=== PATIENT | female | born 1945 | race Caucasian/White ===

== ENCOUNTER → 2020-01-30 | Outpatient (CLI) | payer OTHER ==
[~2020-01-30] VITALS: Ht 165.1 cm; Wt 90.7 kg
[~2020-01-30] MED LIST: ASA81BEC PO; CALCIUM + D3 E1 EACH PO; CENTRUM SILVER1 EAC6 PO; HYDROCHLOROTHIA25 M2 PO; KRILL OIL500 MG PO; PREDNISONE 10 M10 MG PO; ROSUVASTATIN CA20 MG PO; TOPROL XL25 MG PO; ZESTRIL5 MG PO
[2020-01-30 07:15] VITALS: BP 140/71
[2020-01-30 07:33] LABS: HEMATOCRIT 43.3 % (37.0-47.0); HEMOGLOBIN 14.5 gm/dL (12.0-15.0); MCH 31.2 pg (26.0-34.0); MCHC 33.5 g/dL (28.0-37.0); RBC 4.66 mil/uL (4.20-5.00); RDW 14.3 % (10.5-14.5); WBC 7.7 thou/uL (4.0-11.0)
[2020-01-30 07:51] LABS: CALCIUM 9.3 mg/dL (8.5-10.1); CREATININE 0.9 mg/dL (0.6-1.0); POTASSIUM 3.9 mmol/L (3.5-5.1)
--- NOTE | 2020-01-30 09:50 | TEE ---
[facility] [place] [address] TRANSESOPHAGEAL ECHOCARDIOGRAM Name: HOLLAND SANABRIA Room #: REG BRIDGET Lake#: [id number] Admission: 01/30/20 Attend Phys: Fernie Rolle MD, Discharge: Date of : 43 Report #: [id number] THIS REPORT FOR: cc: Abenr Song James L. DO Lundgren, Craig H. MD [facility] ~ APPROVED REPORT Study performed: 01/30/2020 07:59:41 EXAM: Comprehensive 2D, Doppler, and color-flow Echocardiogram Patient Location: Out-Patient Room #: 9 Status: routine BSA: 1.98 HR: 73 bpm BP: 120/64 mmHg Rhythm: NSR Other Information Study Quality: Good Indications Aortic Valve Disease Echo Enhancing Agent Indication: Rule out Shunt Agent(s) / Amount(s) Used: Agitated Saline 7 cc Procedure After obtaining informed consent, patient underwent transesophageal echo in the [employer]. Type of Sedation : Conscious Sedation Sedation was administered by Nurse. Sedation was achieved intravenously with: Versed (3 mg) Fentanyl (50 mcg) Transesophageal probe was inserted and advanced into esophagus without difficulty by Adama Warren MD. Echo enhancement indication: R/O Septal defect. Echo enhancement agent administered: Agitated Saline The CHRISTOPHER was performed without complications. Throughout the procedure, the blood pressure, pulse oximetry, cardiac rhythm, and rate were monitored. [facility] [place] [address] TRANSESOPHAGEAL ECHOCARDIOGRAM Name: HOLLAND SANABRIA Room #: [facility] LloydLeonelaTonieLeonela#: [id number] Admission: 01/30/20 Attend Phys: Fernie Rolle, Discharge: Date of : 43 Report #: [id number] The patient tolerated the procedure without adverse effects. Recovery from conscious sedation was uneventful and vital signs were stable. Left Ventricle The left ventricle is normal size. There is global hypokinesis of the left ventricle. There is normal left ventricular wall thickness. Left ventricular ejection fraction is moderate to severely decreased. LVEF 35%. Right Ventricle The right ventricle is normal size. The right ventricular systolic function is normal. Atria Left atrium is dilated. No thrombus is visualized in the left atrium or appendage. No shunting by contrast bubble injection Right atrium is at the upper limits of normal. Aortic Valve Aortic valve is calcified, trileaflet. Mild aortic regurgitation. Severe aortic stenosis (see transthoracic gradients) Mitral Valve There is mitral annular calcification. 0.5 cm oval density adherent to the posterior leaflet, possibly representing an old vegetation. Mild mitral regurgitation. Transmitral gradients at the upper limits of normal. Tricuspid Valve The tricuspid valve is normal in structure. There is no tricuspid valve regurgitation noted. Pulmonic Valve The pulmonary valve is normal in structure. There is no pulmonic valvular regurgitation. Great Vessels The aortic root is normal in size. Severe focal calcific atherosclerosis of the thoracic aorta. No aneurysm or dissection. IVC is normal in size and collapses >50% with inspiration. Pericardium There is no pericardial effusion. [facility] [address] [place] [address] TRANSESOPHAGEAL ECHOCARDIOGRAM Name: HOLLAND SANABRIA Jesus Room #: [facility] Aleksandra#: [id number] Admission: 01/30/20 Attend Phys: Fernie Rolle, Discharge: Date of : 43 Report #: [id number] <Conclusion> Left ventricular ejection fraction is moderate to severely decreased. There is global hypokinesis of the left ventricle. LVEF 35%. Left atrium is dilated. No thrombus is visualized in the left atrium or appendage. No shunting by contrast bubble injection Aortic valve is calcified, trileaflet. Severe aortic stenosis (see transthoracic gradients) Mild aortic regurgitation. There is mitral annular calcification. 0.5 cm densely calcified oval mass adherent to the posterior leaflet, possibly representing an old vegetation. Mild mitral regurgitation. Calcified mass not seen on CHRISTOPHER dated October 2017. Severe focal calcific atherosclerosis of the thoracic aorta. No aneurysm or dissection. There is no pericardial effusion. <ELECTRONICALLY SIGNED> By: Adama Warren MD, [facility] 01/30/20 0949 0949 0949 Adama Warren MD, FACC /INF
--- NOTE | 2020-01-30 17:08 | CATHLAB ---
[facility] [place] [address] INVASIVE PROCEDURE REPORT Name: HOLLAND SANABRIA Room #: REG BRIDGET Marie.#: [id number] Admission: 01/30/20 Attend Phys: Fernie Rolle MD, Discharge: Date of : 43 Report #: [id number] THIS REPORT FOR: cc: Abner Song James L. DO Mancuso, Gerald M. MD [facility] ~ APPROVED REPORT Study performed: 01/30/2020 07:30:01 Patient Details The patient is a 74 year-old female Event Personnel Fernie Rolle Vegetable Harvest Worker, Jan Pickering RTR Monitor, Lazara Panda Monitor, Katy Toro RN RN, Vidal Matias RN RN, Chelly Burnett RTR, WAFER POLISHING WORKER Scrub Procedures Performed Art Access - R femoral artery* Tesfaye Access - R femoral vein Right and Left Heart Cath w/Lt. Venogram [id number] [id number] Initial Mod Sed Same Phys/QHP Gr5y 394646 Hemostasis w/ Mynx Indication Chest pain Procedure Narrative The Right Groin^ was infiltrated with 1% Lidocaine subcutaneous anesthesia. A Right Heart Catheterization was performed with a 7 Fr. Houston-Zaheer catheter and pressure were recorded. A PINNACLE 6FR Sheath #[id number] sheath was inserted into the RFA^. Coronary angiography was performed using coronary diagnostic catheters. The right coronary system was accessed and visualized with a JR4 catheter. The left coronary system was accessed and visualized with a JL4 catheter. The left ventricle was accessed and visualized with a PIGTAIL catheter. An aortogram of the ascending aorta was performed. Closure device was deployed with a 6 Fr MYNXGRIP 6/7F #[id number]. Hemostasis was obtained with manual pressure following sheath removal without any complications. The patient tolerated the procedure well and there were no complications associated with the procedure. There was no hematoma. Intraoperative Conscious Sedation Sedation start time: 841 Case end Time: 999 [facility] [address] [place] [address] INVASIVE PROCEDURE REPORT Name: DANIELEHOLLAND Room #: [facility]#: [id number] Admission: 01/30/20 Attend Phys: Fernie Rolle, Discharge: Date of : 43 Report #: [id number] Fentanyl 25 mcg Fluoro Time: 4.60 minutes Dose: DAP 8523.30 cGycm2 800 mGy Contrast Type and Amount: Omnipaque 45 ml Hemodynamics The right atrial mean pressure is 15 mmHg. The right ventricular pressure is 58/6 mmHg. The pulmonary artery pressure is 51/23 mmHg with a mean of 36 mmHg. The mean pulmonary capillary wedge pressure is 30 mmHg. The aortic pressure is 126/67 mmHg with a mean of 94 mmHg. The cardiac output using thermo method is 4.75 L/min. The cardiac index using thermo method is 2.40 L/min/m2. Conclusion 1. Successful right heart catheterization with cardiac output by thermodilution. See above hemodynamics. #2 ostial left main of 50 to 60% giving rise to a large dilated left main which gives rise to LAD and circumflex. #3 LAD is moderately calcified tortuous no high-grade occlusive disease is noted diagonal system mildly diseased. #4 nondominant circumflex with a high-grade ostial OM branch relatively small in distribution. #5 dominant right is proximally occluded. The PDA is predominantly filled via left to right collateralization. #6 no LV gram but supravalvular aorta revealing normal caliber with mild aortic insufficiency. This valve calculated 0.7 cm noninvasively. Severe aortic stenosis. 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 Recommendations and plan: Aggressive risk factor modification diuresis. CV surgical consultation regarding S AVR versus TAVR not clear that bypass in addition to the valve replacement would offer much improvement. Hemodynamically stable and pain-free. <ELECTRONICALLY SIGNED> By: Fernie Rolle MD, FACC 01/30/201706 06 06 Fernie Rolle MD, FACC /INF
--- NOTE | 2020-02-01 12:41 | HC ---
[facility] [place] [address] CONSULTATION Name: HOLLAND SANABRIA Room #: REG BRIDGET Marie#: [id number] Admission: 01/30/20 Attend Phys: Fernie Rolle MD, Discharge: Date of : 43 Report #: [id number] THIS REPORT FOR: cc: Abner Song James L. DO Forman, John M. MD ~ CC: Adama Song DATE OF SERVICE: 01/30/2020 We were asked by Dr. Rolle to see the patient. HISTORY OF PRESENT ILLNESS: The patient is a 74-year-old with coronary artery and aortic valve disease. The patient is generally asymptomatic; although, at times she describes a "funny feeling" in her chest. There is no specific history of angina or shortness of breath. The patient is not particularly active; however, and may be subtly censoring her activity. Cardiac catheterization today demonstrates a totally occluded right coronary artery. I do not see good distal collateral filling. The left main has a 40% lesion, but it is somewhat misleading because the orifice itself is large, but there was an even larger mid portion of the left main and there was moderate disease in the LAD, measuring up to 30%; approximately 40% mid-section and the circumflex has 40% lesions. Left ventricular function is 40% by transesophageal echo done today. Transesophageal echo also reveals a peak aortic gradient of 87 mmHg and a mean of 52 with an aortic valve area of 0.74 cm2. PAST MEDICAL HISTORY: Significant for hypertension and hypercholesterolemia. The patient also is on chronic steroids for polymyalgia rheumatica. MEDICATIONS: Includes aspirin, calcium, vitamins, hydrochlorothiazide, lisinopril, metoprolol, prednisone. ALLERGIES: None known. SOCIAL HISTORY: Former smoker. FAMILY HISTORY: Positive for heart disease in mother. REVIEW OF SYSTEMS: GENERAL: No fever. No significant weight change. EYES: Wears glasses. HEENT: No headache, sore throat, rhinorrhea. CARDIAC: No chest pain, no palpitations. [facility] [address] [place] [address] CONSULTATION Name: HOLLAND SANABRIA Jesus Room #: REG BRIDGET Lake#: [id number] Admission: 01/30/20 Attend Phys: Fernie Rolle MD, Discharge: Date of : 43 Report #: [id number] RESPIRATORY: Denies shortness of breath or sputum. GASTROINTESTINAL: Denies nausea, vomiting, melena. GENITOURINARY: Denies urgency, frequency, or hematuria. MUSCULOSKELETAL: Denies bone and joint pain. SKIN: Denies rash or infection. NEUROLOGIC: Denies motor or sensory dysfunction. ENDOCRINE: Denies goiter or tremor. HEMATOLOGIC: Denies bruisability or bleeding. PHYSICAL EXAMINATION: CONSTITUTIONAL: The patient is lying in bed after her cardiac catheterization. VITAL SIGNS: Blood pressure 130/84, heart rate 76. HEENT: No scleral icterus, no arcus. NECK: No mass. I hear no bruit. CHEST: Clear. HEART: Rhythm regular with a loud aortic stenosis murmur radiating to the neck. ABDOMEN: Soft, no mass, no tenderness. EXTREMITIES: No clubbing, cyanosis or edema. No obvious saphenous vein problems, 2+ popliteal pulses. I reviewed the findings of the cardiac catheterization with the patient. The patient has mild coronary artery disease, but severe aortic stenosis. Options would include open aortic valve replacement, transcatheter aortic valve replacement or combined open valve replacement with coronary bypass. I will discuss the case with Dr. Rolle. The aortic valve disease is certainly severe and merits treatment and the question is whether the coronary artery disease should influence our treatment. Thank you for the consult. <ELECTRONICALLY SIGNED> By: Rico Caputo MD 02/01/20 1241 1325 1536 Rico Caputo MD /nt
== END | disposition home or self-care (01) ==
LOC: CATH 06:34
PROVIDERS: ATTEND Internal Medicine Cardiovascular Disease
DX: R07.9 Chest pain, unspecified (principal); I25.10 Atherosclerotic heart disease of native coronary artery without angina pectoris; I70.0 Atherosclerosis of aorta; I08.0 Rheumatic disorders of both mitral and aortic valves; I10 Essential (primary) hypertension; E78.00 Pure hypercholesterolemia, unspecified; Z98.890 Other specified postprocedural states; Z79.899 Other long term (current) drug therapy; Z82.49 Family history of ischemic heart disease and other diseases of the circulatory system; Z87.891 Personal history of nicotine dependence

== ENCOUNTER → 2021-01-26 | Outpatient (CLI) | payer OTHER | LOC: SJCVCIMAG 13:36 → SJCVC 13:36 | PROVIDERS: ATTEND Internal Medicine Cardiovascular Disease | DX: R94.31 Abnormal electrocardiogram [ECG] [EKG] (principal); I08.1 Rheumatic disorders of both mitral and tricuspid valves; I11.9 Hypertensive heart disease without heart failure; I45.4 Nonspecific intraventricular block; I25.10 Atherosclerotic heart disease of native coronary artery without angina pectoris; E78.00 Pure hypercholesterolemia, unspecified; I42.9 Cardiomyopathy, unspecified; Z87.891 Personal history of nicotine dependence; Z79.82 Long term (current) use of aspirin; Z79.899 Other long term (current) drug therapy; Z95.2 Presence of prosthetic heart valve ==